=== PATIENT | female | born 1950 | race Caucasian/White ===

== ENCOUNTER → 2017-02-08 12:20 | Outpatient (CLI) | payer MEDICARE, OTHER ==
[2014-11-05 10:23] VITALS: BMI 27.5
[~2017-02-08 12:20] MED LIST: ADVAIR 250/501 DISK INH; CENTRUM COMPLE1 EACH PO; NAPROSYN500 MG PO; OYST-CAL-5001 TAB PO; SYNTHROID50 MCG PO
== END | disposition home or self-care (01) ==
LOC: D.RT 12:20
DX: M81.0 Age-related osteoporosis without current pathological fracture (principal); J45.909 Unspecified asthma, uncomplicated